=== PATIENT | female | born 1950 | race Hispanic/Latino ===

== ENCOUNTER 2019-05-18 14:21 | Outpatient (CLI) | payer MEDICARE, MEDICAID ==
--- NOTE | 2019-05-18 14:58 | RAD ---
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 No anterolisthesis or retrolis thesis noted. Open-mouth odontoid view demonstrates a normal-appearing dens and C1-2 articulation. Mild multilevel mid cervical spine facet and uncovertebral osteophyte formation noted, left greater t alvarado right. Prevertebral soft tissues demonstrate no focal area of swelling. The Fuchs view demonstrates a normal appearance of the dens. IMPRESSION: No acute findings. Mild degenerative change. If there are radicular symptoms, MRI is kallie mmended.
== END 2019-05-18 14:22 | disposition home or self-care (01) ==
LOC: BICRAD 14:21
PROVIDERS: ATTEND Family Medicine
DX: M54.2 Cervicalgia (principal); M47.812 Spondylosis without myelopathy or radiculopathy, cervical region
CPT/HCPCS: 72040